=== PATIENT | female | born 1990 | race Caucasian/White ===

== ENCOUNTER 2017-11-16 04:02 | Inpatient (IN) | payer SELFPAY ==
[2017-11-16] VITALS (10 sets, daily range): BP systolic 102–132; BP diastolic 49–84; PULSE 78–114; RESP 16–20; TEMP 97.9–98
[2017-11-16] MEDS ORDERED: LACTATED RINGER'S 1000 ML INJ 1,000 ML IV SCH (05:01)
[2017-11-16] MEDS ORDERED: LACTATED RINGER'S 1000 ML INJ 1,000 ML IV PRN (05:01)
--- NOTE | 2017-11-16 05:13 | HHI.HP ---
HPI Chief Complaint conTractions Date Seen: Nov 16, 2017 Time Seen: 04:45 Travel History International Travel<30 Days: No Contact w/Intl Traveler<30Days: No Known Affected Area: No History of Present Illness HPI 27-year-old white female at 39 weeks presents in active labor 5 cm dilated , heart tones reactive contractions noted on the monitor. Patient goes to [facility] Weeks Gestation: 39 Para: 1 : 2 History Obstetric History Obstetric History One vaginal delivery Social History Alcohol Use: No Tobacco Use: No Substance Abuse: No Allergies-Medications (Allergen,Severity, Reaction): Coded Allergies: No Known Allergies (Unverified , 11/16/17) Review of Systems General / Constitutional: No: Fever, Weight Gain, Chills, Other Eyes: No: Diploplia, Blurred Vision, Visual changes, Pain, Photophobia HENT: No: Headaches, Vertigo, Lightheadedness Cardiovascular: No: Irregular Rhythm, Chest Pain or Discomfort, Palpitations, Tachycardia, Syncope, Varicosities, Edema, Cyanosis Respiratory: No: Cough, Short of Breath, Other Gastrointestinal: Abdominal Pain, No: Nausea, Vomiting, Diarrhea Genitourinary: No: Decreased Urinary Output, Oliguria Musculoskeletal: No: Limited ROM, Weakness, Cramping, Edema, Pain Skin: No Rash, No Itching, No Dryness, No Lumps, No Change in Pigmentation, No Change in Nails, No Alopecia, No Lesions Neurologic: No: Weakness, Dizziness, Syncope, Focal Abnormalities, Coordination Problem, Headache, Slurred Speech, Seizures Psychiatric: No: Depression, Suicidal Ideations, Homicidal Ideation Endocrine: No: Heat Intolerance, Cold Intolerance, Polydipsia, Polyuria, Other Physical Exam Narrative GENERAL: Well-nourished, well-developed patient. SKIN: Warm and dry. HEAD: Normocephalic and atraumatic. EYES: No scleral icterus. No injection or drainage. ENT: No nasal drainage noted. Mucous membranes pink. Airway patent. NECK: Supple, trachea midline. No JVD. CARDIOVASCULAR: Regular rate and rhythm without murmurs, gallops, or rubs. RESPIRATORY: Breath sounds equal bilaterally. No accessory muscle use. BREASTS: Bilateral exam showed no masses , no retractions, no nipple discharge. ABDOMEN/GI: Abdomen soft, non-tender, bowel sounds present, no rebound, no guarding Gravid to [39-] weeks size Fundal Height: [39-] GENITOURINARY: External Genitalia: intact and normal in appearance BUS glands: [-] Cervix: [-] Dilatation: [-5] Effacement: [-80] Station: [-3] Presentation: [-vtx] Membranes: [intact ] Uterine Contractions: [reg-] FHT's: Category: [1-] Baseline: [-133] Reactive: [-R] Variability: [-mod] Decels: [-none] EXTREMITIES: No cyanosis or edema. BACK: Nontender without obvious deformity. No CVA tenderness. NEUROLOGICAL: Awake and alert. Motor and sensory grossly within normal limits. Five out of 5 muscle strength in all muscle groups. Normal speech. Caprini VTE Risk Assessment Caprini VTE Risk Assessment: No/Low Risk (score <= 1) Caprini Risk Assessment Model Point Value = 1 Point Value = 2 Point Value = 3 Point Value = 5 Age 41-60 Minor surgery BMI > 25 kg/m2 Swollen legs Varicose veins or History of unexplained or recurrent spontaneous Oral contraceptives or hormone replacement Sepsis (< 1 month) Serious lung disease, including pneumonia (< 1 month) Abnormal pulmonary function Acute myocardial infarction Congestive heart failure (< 1 month) History of inflammatory bowel disease Medical patient at bed rest Age 61-74 Arthroscopic surgery Major open surgery (> 45 min) Laparoscopic surgery (> 45 min) Malignancy Confined to bed (> 72 hours) Immobilizing plaster cast Central venous access Age >= 75 History of VTE Family history of VTE Factor V Leiden Prothrombin [id number] Lupus anticoagulant Anticardiolipin antibodies Elevated serum homocysteine Heparin-induced thrombocytopenia Other congenital or acquired thrombophilia Stroke (< 1 month) Elective arthroplasty Hip, pelvis, or leg fracture Acute spinal cord injury (< 1 month) Prophylaxis Regimen Total Risk Factor Score Risk Level Prophylaxis Regimen 0-1 Low Early ambulation 2 Moderate Order ONE of the following: *Sequential Compression Device (SCD) *Heparin 5000 units SQ BID 3-4 Higher Order ONE of the following medications: *Heparin 5000 units SQ TID *Enoxaparin/Lovenox 40 mg SQ daily (WT < 150 kg, CrCl > 30 mL/min) *Enoxaparin/Lovenox 30 mg SQ daily (WT < 150 kg, CrCl > 10-29 mL/min) *Enoxaparin/Lovenox 30 mg SQ BID (WT < 150 kg, CrCl > 30 mL/min) AND/OR *Sequential Compression Device (SCD) 5 or more Highest Order ONE of the following medications: *Heparin 5000 units SQ TID (Preferred with Epidurals) *Enoxaparin/Lovenox 40 mg SQ daily (WT < 150 kg, CrCl > 30 mL/min) *Enoxaparin/Lovenox 30 mg SQ daily (WT < 150 kg, CrCl > 10-29 mL/min) *Enoxaparin/Lovenox 30 mg SQ BID (WT < 150 kg, CrCl > 30 mL/min) AND *Sequential Compression Device (SCD) Data Data Orders Orders Ob (2e) Additional Admit Info (11/16/17 04:48) Admit To Inpatient (11/16/17 ) Vital Signs (Adult) .Per protocol (11/16/17 05:01) Heart (11/16/17 05:01) Amnioinfusion (11/16/17 05:01) Urinary Catheter Management .ONCE (11/16/17 05:01) Lactated Ringer's 1000 Ml Inj (Lr 1000 M (11/16/17 05:01) Lactated Ringer's 1000 Ml Inj (Lr 1000 M (11/16/17 05:01) Sodium Chlorid 0.9% 500 Ml Inj (Ns 500 M (11/16/17 05:15) Sodium Chlor 0.9% 1000 Ml Inj (Ns 1000 M (11/16/17 05:21) Lidocaine 1% Inj (50 Ml) (Xylocaine 1% I (11/16/17 05:15) Citric Acid-Sodium Citrate Liq (Bicitra (11/16/17 05:15) Fentanyl Inj (Fentanyl Inj) (11/16/17 05:15) Fentanyl Inj (Fentanyl Inj) (11/16/17 05:15) Complete Blood Count With Diff (11/16/17 05:01) Hold Clot (11/16/17 05:01) Abo/Rh Blood Type (11/16/17 05:01) Urinalysis - C+S If Indicated (11/16/17 05:01) Drug Screen, Random Urine (11/16/17 05:01) Resp Oxygen Non Rebreathe Mask (11/16/17 ) ^ Epidural / Intrathecal Infus (11/16/17 05:01) Oxytocin 30 Units-500ml Premix (Pitocin (11/16/17 05:15) Lidocaine 1% Inj (50 Ml) (Xylocaine 1% I (11/16/17 05:15) Light Mineral Oil (Muri-Lube Oil) (11/16/17 05:15) Specimen To Be Collected PRN (11/16/17 05:01) Specimen To Be Collected PRN (11/16/17 05:01) Group B Strep: Negative Assessment/Plan Assessment and Plan 27-year-old white female at 39 weeks in active labor, cervix 590/0 admit for labor management Silas Mann II, MD Nov 16, 2017 05:13
[2017-11-16] MEDS ORDERED: LIDOCAINE HCL 1% 50 ML VIAL I-DERMAL PRN (05:15)
[2017-11-16] MEDS ORDERED: MINERAL OIL 10 ML VIAL TOPICAL PRN (05:15)
[2017-11-16] MEDS ORDERED: LIDOCAINE HCL 1% 50 ML VIAL INFIL PRN (05:15)
[2017-11-16] MEDS ORDERED: SODIUM CHLORID 0.9% 500 ML INJ 500 ML IV PRN (05:15)
[2017-11-16] MEDS ORDERED: OXYTOCIN 30 UNITS-500ML PREMIX 500 ML IV ONE (05:15)
[2017-11-16] MEDS ORDERED: CITRIC ACID-SODIUM CITRATE LIQ 30 ML UDC PO SCH (05:15)
[2017-11-16] MEDS ORDERED: SODIUM CHLOR 0.9% 1000 ML INJ 1,000 ML IV PRN (05:21)
[2017-11-16 05:41] LABS: BASOPHIL % 0.2 % (0.0-2.0); EOSINOPHIL % 0.4 % (0.0-4.0); HEMOGLOBIN 13.3 GM/DL (11.6-15.3); LYMPH % 13.9 % (9.0-44.0); LYMPHOCYTE # 1.9 TH/MM3 (1.0-4.8); MEAN CELL VOLUME 88.5 FL (80.0-100.0); MEAN CORPUSCULAR HEMOGLOBIN 30.9 PG (27.0-34.0); MEAN CORPUSCULAR HGB CONC 34.9 % (32.0-36.0); MEAN PLATELET VOLUME 7.9 FL (7.0-11.0); MONOCYTE # 0.5 TH/MM3 (0-0.9); NEUT % 81.5 % (16.0-70.0); PLATELET COUNT 216 TH/MM3 (150-450); RED BLOOD COUNT 4.29 MIL/MM3 (4.00-5.30); RED CELL DISTRIBUTION WIDTH 13.9 % (11.6-17.2); WHITE BLOOD COUNT 13.5 TH/MM3 (4.0-11.0)
[2017-11-16 05:48] LABS: BILIRUBIN, URINE NEG (NEG); BLOOD, URINE MOD (NEG); GLUCOSE,URINE NEG (NEG); HYALINE CAST, URINE 1 /lpf (RARE); KETONE, URINE 10 mg/dL (NEG); MUCUS URINE FEW /lpf (OCC); NITRITE,URINE NEG (NEG); SQUAMOUS EPITHELIAL CELL URINE 3 /hpf (0-5); URINE COLOR YELLOW (YELLW/STRAW); URINE LEUKOCYTE ESTERASE MOD (NEG)
[2017-11-16 05:49] LABS: BACTERIA, URINE FEW /hpf
--- NOTE | 2017-11-16 06:01 | PD.LABORPN ---
Objective Objective 100%/9/0 BBOW arom clear EFW 7 proven pelvis strip reassuring Weeks Gestation: 39 Gest Age Assessed Date: Nov 16, 2017 Gest Age Assessed Time: 06:00 Pt started active labor?: Yes Medical induction of labor?: No Artificial rupture of membrane: Yes Artificial ROM date: Nov 16, 2017 Artifical ROM time: 06:00 Assessment/Plan Problem List: (1) Third trimester ICD Codes: Z34.93 - Encounter for supervision of normal , unspecified , third trimester Assessment and Plan anticipate imminent delivery Lamar Silva MD Nov 16, 2017 06:01
[2017-11-16] MEDS ORDERED: LIDOCAINE HCL 1% 20 ML VIAL ONE (06:05)
--- NOTE | 2017-11-16 07:22 | PD.OB.DELI ---
Weeks gestation: 39 Gest age assessed date: Nov 16, 2017 Gest age assessed time: 06:00 Pt started active labor?: Yes Active labor start date: Nov 16, 2017 Medical induction of labor?: No Artificial rupture of membrane: Yes Artificial ROM date: Nov 16, 2017 Artifical ROM time: 06:00 Anesthesia: None Episiotomy: None Vaginal Delivery: Normal Presentation: Occiput anterior Nuchal Cord: None Delayed cord clamping (45 sec): Yes : Male Delivery date: Nov 16, 2017 Delivery time: 07:10 One Minute : 8 Five Minute : 9 Weight: 7.5 lb Placenta: Spontaneous delivery Laceration: No lacerations Estimated blood loss: 200 cc Additional Information L labial hematoma that is being observed Lamar Silva MD Nov 16, 2017 07:22
[2017-11-16] MEDS ORDERED: WITCH HAZEL 50%/GLYCERIN 12.5% 40 PAD JAR TOPICAL PRN (07:30)
[2017-11-16] MEDS ORDERED: BENZOCAINE 20% TOPICAL SPRAY 60 ML CAN TOPICAL PRN (07:30)
[2017-11-16] MEDS ORDERED: SODIUM CHLORIDE 0.9% FLUSH 10 ML FLUSH IV FLUSH PRN (07:30)
[2017-11-16] MEDS ORDERED: ALUMINUM/MAGNESIUM/SIMETH 30 ML CUP PO PRN (07:30)
[2017-11-16] MEDS ORDERED: ZOLPIDEM TARTRATE 5 MG TAB PO PRN (07:30)
[2017-11-16] MEDS ORDERED: oxyCODONE/ACETAMINOPHEN 5 MG/325 MG TAB PO PRN (07:30)
[2017-11-16] MEDS ORDERED: ACETAMINOPHEN 325 MG TAB PO PRN (07:30)
[2017-11-16] MEDS ORDERED: ONDANSETRON ODT 4 MG TAB PO PRN (07:30)
[2017-11-16] MEDS ORDERED: OXYTOCIN 30 UNITS-500ML PREMIX 500 ML IV SCH (08:00)
[2017-11-16] MEDS: IBUPROFEN 800 MG TAB PO PRN ×2 (08:07→16:58)
[2017-11-16] MEDS: oxyCODONE/ACETAMINOPHEN 5 MG/325 MG TAB PO PRN ×3 (08:08→20:52)
[2017-11-16] MEDS ORDERED: SODIUM CHLORIDE 0.9% FLUSH 10 ML FLUSH IV FLUSH SCH (09:00)
[2017-11-16] MEDS: DOCUSATE SODIUM 50 MG/SENNA 8.6 MG TAB PO PRN (12:19)
[2017-11-16] MEDS ORDERED: DIPHTH/TETANUS/ACEL PERTUSSIS (BOOSTER) 0.5 ML VIAL/PFS IM ONE (16:00)
[2017-11-16] MEDS ORDERED: MEASLES, MUMPS, RUBELLA VACCINE 0.5 ML VIAL SQ ONE (16:00)
[2017-11-17] MEDS: IBUPROFEN 800 MG TAB PO PRN ×2 (00:47→08:46)
[2017-11-17] MEDS: oxyCODONE/ACETAMINOPHEN 5 MG/325 MG TAB PO PRN ×3 (00:47→12:44)
[2017-11-17 08:00] VITALS: BP 116/71; PULSE 74; RESP 14; TEMP 98
--- NOTE | 2017-11-17 08:12 | HHI.OB ---
Subjective Post Day: 1 Remarks doing well Objective Vitals/I&O Vital Signs Date Time Temp Pulse Resp B/P (MAP) Pulse Ox O2 Delivery O2 Flow Rate FiO2 11/16/17 20:00 98.0 78 16 102/63 (76) 11/16/17 08:53 97.9 11/16/17 08:52 88 16 11/16/17 08:52 121/75 (90) Objective Remarks GENERAL: Well-nourished, well-developed patient. CARDIOVASCULAR: Regular rate and rhythm without murmurs, gallops, or rubs. RESPIRATORY: Breath sounds equal bilaterally. No accessory muscle use. ABDOMEN/GI: Abdomen soft, non-tender. Fundus: Firm, non-tender at umbilicus. GENITOURINARY: Light to moderate bleeding. EXTREMITIES: No cyanosis or edema, non-tender, without signs of DVT. Medications and IVs Current Medications Medications (Trade) Dose Ordered Sig/Lisandra Route Start Time Stop Time Status Last Admin Lactated Ringer's 1,000 ml @ 125 mls/hr Q8H IV 11/16/17 05:01 Lactated Ringer's 1,000 ml @ 3,000 mls/hr Q20M PRN IV 11/16/17 05:01 Sodium Chloride 1,000 ml @ 100 mls/hr Q10H PRN IV 11/16/17 05:21 (Xylocaine 1% Inj (50 ml)) 0.1 ml UNSCH X1 PRN I-DERMAL 11/16/17 05:15 11/19/17 05:14 (Bicitra Liq) 30 ml [employer] PO 11/16/17 05:15 11/20/17 05:14 (fentaNYL INJ) 50 mcg Q1H PRN IV PUSH 11/16/17 05:15 (fentaNYL INJ) 100 mcg Q1H PRN IV PUSH 11/16/17 05:15 (Xylocaine 1% Inj (50 ml)) 10 ml UNSCH X1 PRN INFIL 11/16/17 05:15 11/18/17 05:14 (Muri-Lube Oil) 10 ml UNSCH PRN TOPICAL 11/16/17 05:15 (NS Flush) 2 ml BID IV FLUSH 11/16/17 09:00 (NS Flush) 2 ml UNSCH PRN IV FLUSH 11/16/17 07:30 (Tylenol) 650 mg Q4H PRN PO 11/16/17 07:30 (Motrin) 800 mg Q8H PRN PO 11/16/17 07:30 11/17/17 00:47 (Percocet 5-325 Mg) 1 tab Q4H PRN PO 11/16/17 07:30 11/16/17 16:58 (Percocet 5-325 Mg) 2 tab Q4H PRN PO 11/16/17 07:30 11/17/17 00:47 (Americaine 20% Top Spr) 1 spray Q4H PRN TOPICAL 11/16/17 07:30 11/16/17 08:08 (Tucks Pads) 1 applic QID PRN TOPICAL 11/16/17 07:30 (Eliana-Colace) 2 tab Q12H PRN PO 11/16/17 07:30 11/16/17 12:19 (Ambien) 5 mg HS PRN PO 11/16/17 07:30 (Mag-Al Plus Susp Liq) 15 ml Q8H PRN PO 11/16/17 07:30 (Zofran Odt) 4 mg Q6H PRN PO 11/16/17 07:30 Assessment/Plan Problem List: (1) Third trimester ICD Codes: Z34.93 - Encounter for supervision of normal , unspecified , third trimester (2) Vaginal delivery ICD Codes: O80 - Encounter for full-term uncomplicated delivery Assessment and Plan 27-year-old white female at 39 weeks s/p Discharge Planning routine Attending Attestation pt seen by Kallie Garcia MD Nov 17, 2017 08:12
[2017-11-17] MEDS ORDERED: IBUP1TAB7 PO (08:20)
--- NOTE | 2017-11-17 08:20 | HHI.DCPOC ---
Discharge Care Plan Your Health Problems Are: Pelvic pain Report Symptoms to Your Doctor -Temperature above 100.5 degrees -Redness, of incision or excessive or foul smelling drainage -Unusual pain or calf pain -Increased vaginal bleeding -Painful or difficulty urinating -Feelings of extreme sadness or anxiety after 2 weeks Goals to Promote Your Health * To prevent worsening of your condition and complications * To maintain your health at the optimal level Directions to Meet Your Goals Take your medications as prescribed Follow your dietary instruction Follow activity as directed Ensure plenty of rest for recovery Drink fluids for hydration Keep your appointments as scheduled Take your immunizations and boosters as scheduled If your symptoms worsen call your PCP, if no PCP go to Urgent Care Center or Emergency Room Smoking is Dangerous to Your Health. Avoid second hand smoke Call the 24-hour crisis hotline for domestic abuse at Kallie Dee MD Nov 17, 2017 08:20
[2017-11-17] MEDS: DOCUSATE SODIUM 50 MG/SENNA 8.6 MG TAB PO PRN (08:45)
== END 2017-11-17 15:00 | disposition home or self-care (01) | DRG 775 ==
LOC: HOBED 04:02 → H2EA 04:50 → H1EA 08:37
PROVIDERS: ADMIT Obstetrics & Gynecology; ATTEND Obstetrics & Gynecology
PROC: 10E0XZZ Delivery of Products of Conception, External Approach (ICD-10-PCS; principal; 2017-11-16)
PROC: 10907ZC Drainage of Amniotic Fluid, Therapeutic from Products of Conception, Via Natural or Artificial Opening (ICD-10-PCS; 2017-11-16)
DX: O71.7 Obstetric hematoma of pelvis (principal); Z37.0 Single live birth; Z3A.39 39 weeks gestation of pregnancy
CPT/HCPCS: 80307; 81001; 85025; 86900; 86901